=== PATIENT | male | born 1950 | race Caucasian/White ===

== ENCOUNTER 2017-11-20 15:25 | Inpatient (IN) | payer OTHER ==
[~2017-11-20] VITALS: Ht 177.8 cm; Wt 110.6 kg
[~2017-11-20 15:25] MED LIST: ALBUTEROL2.5 MG/3 M IH; ALENDRONATE SOD70 MG PO; AMOX TR-K CLV1 EAC4 PO; ASPIRIN EC325 MG PO; CALCIUM CARBON650 MG PO; CETIRIZINE HCL10 M2 PO; CYANOCOBALAM1000 MCG PO; FERROUS SULFAT325 MG PO; FLONASE16 G1 BOTH NARES; FOLIC ACID1 MG PO; IRON325 MG PO; LEVO-T75 MCG PO; LO-DOSE ASPIRIN81 M1 PO; METOPROLOL TART50 MG PO; MYCOSTATIN 100,60 ML PO; NEURONTIN100 MG PO; OMEPRAZOLE20 M2 PO; OXYCODONE HCL5 MG PO; OXYCONTIN10 MG PO; PROAIR RESPICL90 MCG IH; REFRESH TEARS15 ML BOTH EYES; RESTASIS 01 DROP/0.4 BOTH EYES; SALINE NOSE SPR45 M1 BOTH NARES; SARNA ANTI-ITC222 ML TP; SENNA PLUS TAB1 EACH PO; SYMBICORT60 INHALAT IH; TYLENOL EXTRA500 MG PO; ULTRAM50 MG PO; VALSARTAN80 MG PO; VIAGRA100 MG PO; VITAMIN C1000 MG PO; VITAMIN D31000 UNIT PO; XARELTO10 MG PO
[2017-11-20 15:30] VITALS: BP 148/71
[2017-11-20] MEDS ORDERED: ADULT ASPIRIN81 MG PO (15:45)
[2017-11-20] MEDS ORDERED: KEFLEX500 MG PO (15:47)
[2017-11-20] MEDS ORDERED: HYDROCHLOROTHIA25 MG PO (15:48)
[2017-11-20] MEDS ORDERED: INCRUSE ELLI62.5 MCG IH (15:49)
[2017-11-20] MEDS ORDERED: ARTIFICIAL TEAR1510 OP (15:50)
[2017-11-20] MEDS ORDERED: RESTASIS MULTI5.5 ML OP (15:51)
[2017-11-20] MEDS ORDERED: FLUNISOLIDE25 ML BOTH NARES (15:52)
[2017-11-20] MEDS ORDERED: SYMBICORT60 INHALAT IH (15:53)
[2017-11-20] MEDS ORDERED: PROBIOTIC1 EAC1 PO (15:54)
[2017-11-20] MEDS ORDERED: SILDENAFIL CIT100 MG PO (15:55)
[2017-11-20 23:47] VITALS: BP 117/56
[2017-11-21 05:38] VITALS: BP 131/62
[2017-11-21 05:47] LABS: HEMATOCRIT 30.6 % (38.0-50.0); HEMOGLOBIN 10.6 G/DL (12.5-16.6); MCH 33.1 PG (29.0-34.0); MCHC 34.6 G/DL (30.0-36.0); MCV 95.6 FL (86-99); PLATELET COUNT 339 K/uL (156-360); RBC DIS.WIDTH-CV 12.7 % (11.8-14.6); RBC DIS.WIDTH-SD 44.4 % (39-53); WHITE BLOOD COUNT 8.1 K/uL (4.1-10.2)
[2017-11-21 06:05] LABS: ALBUMIN 2.9 G/DL (3.2-4.8); ALKALINE PHOSPHATASE 82 IU/L (3-129); ALT (GPT) 12 IU/L (3-49); AST (GOT) 16 IU/L (2-34); CHLORIDE 93 MEQ/L (99-109); CREATININE 0.9 MG/DL (0.6-1.3); GFR ESTIMATE (CALCULATED) > 59 mL/min/ (58.99-99999); GLUCOSE 103 mg/dL (70-99); POTASSIUM 4.3 MEQ/L (3.7-5.4); SODIUM 127 MEQ/L (136-147); TOTAL BILIRUBIN 0.4 MG/DL (0.0-1.0); TOTAL PROTEIN 6.5 G/DL (6.4-8.3); UREA NITROGEN (BUN) 20 mg/dL (9-23)
[2017-11-21 15:50] VITALS: BP 120/59
[2017-11-22 06:41] VITALS: BP 126/63
[2017-11-22 07:59] VITALS: BP 128/64
[2017-11-22 16:12] VITALS: BP 131/62
[2017-11-23 05:22] VITALS: BP 120/58
[2017-11-23 05:28] LABS: BASOPHIL (%) 0.9 % (0-1); BASOPHIL COUNT 0.1 K/uL (0-0.1); EOSINOPHIL (%) 7.3 % (0-5); EOSINOPHIL COUNT 0.7 K/uL (0-0.3); HEMATOCRIT 31.7 % (38.0-50.0); HEMOGLOBIN 10.7 G/DL (12.5-16.6); IMMATURE GRANULOCYTE (%) 0.7 % (0.0-0.7); LYMPHOCYTE (%) 33.6 % (15-42); LYMPHOCYTE COUNT 3.1 K/uL (1.0-2.8); MCH 32.6 PG (29.0-34.0); MCHC 33.8 G/DL (30.0-36.0); MCV 96.6 FL (86-99); MONOCYTE (%) 19.1 % (3-12); MONOCYTE COUNT 1.7 K/uL (0-0.8); NEUTROPHIL (%) 38.4 % (45-76); NEUTROPHIL COUNT 3.5 K/uL (1.8-6.4); PLATELET COUNT 428 K/uL (156-360); RBC DIS.WIDTH-CV 12.8 % (11.8-14.6); RBC DIS.WIDTH-SD 45.7 % (39-53); RED BLOOD COUNT 3.28 M/uL (4.00-5.50); WHITE BLOOD COUNT 9.1 K/uL (4.1-10.2)
[2017-11-23 05:58] LABS: ALBUMIN 3.4 G/DL (3.2-4.8); ALKALINE PHOSPHATASE 74 IU/L (3-129); ALT (GPT) 15 IU/L (3-49); AST (GOT) 14 IU/L (2-34); CHLORIDE 94 MEQ/L (99-109); CREATININE 0.8 MG/DL (0.6-1.3); GFR ESTIMATE (CALCULATED) > 59 mL/min/ (58.99-99999); GLUCOSE 114 mg/dL (70-99); POTASSIUM 4.4 MEQ/L (3.7-5.4); SODIUM 127 MEQ/L (136-147); TOTAL BILIRUBIN 0.4 MG/DL (0.0-1.0); UREA NITROGEN (BUN) 16 mg/dL (9-23)
[2017-11-23 07:26] VITALS: BP 122/59
[2017-11-23 15:21] VITALS: BP 131/66
[2017-11-24 03:35] VITALS: BP 141/80
[2017-11-24 15:32] VITALS: BP 117/59
[2017-11-25 04:48] VITALS: BP 132/64
[2017-11-25 06:28] LABS: CHLORIDE 95 MEQ/L (99-109); CREATININE 0.8 MG/DL (0.6-1.3); GFR ESTIMATE (CALCULATED) > 59 mL/min/ (58.99-99999); GLUCOSE 111 mg/dL (70-99); POTASSIUM 4.5 MEQ/L (3.7-5.4); SODIUM 130 MEQ/L (136-147); UREA NITROGEN (BUN) 14 mg/dL (9-23)
[2017-11-25 15:10] VITALS: BP 119/58
[2017-11-26 05:40] VITALS: BP 134/68
[2017-11-26 06:12] LABS: HEMATOCRIT 32.4 % (38.0-50.0); HEMOGLOBIN 10.8 G/DL (12.5-16.6); MCH 32.7 PG (29.0-34.0); MCHC 33.3 G/DL (30.0-36.0); MCV 98.2 FL (86-99); PLATELET COUNT 535 K/uL (156-360); RBC DIS.WIDTH-CV 12.9 % (11.8-14.6); RBC DIS.WIDTH-SD 46.5 % (39-53); WHITE BLOOD COUNT 8.8 K/uL (4.1-10.2)
[2017-11-26 06:37] LABS: CHLORIDE 95 MEQ/L (99-109); CREATININE 0.8 MG/DL (0.6-1.3); GFR ESTIMATE (CALCULATED) > 59 mL/min/ (58.99-99999); GLUCOSE 103 mg/dL (70-99); POTASSIUM 4.6 MEQ/L (3.7-5.4); SODIUM 131 MEQ/L (136-147); UREA NITROGEN (BUN) 13 mg/dL (9-23)
[2017-11-26 16:14] VITALS: BP 136/65
[2017-11-27 06:59] VITALS: BP 164/74
[2017-11-27 11:20] VITALS: BP 148/68
[2017-11-27 16:13] VITALS: BP 131/61
[2017-11-28 05:49] VITALS: BP 137/67
[2017-11-28] MEDS ORDERED: NEURONTIN100 MG PO (08:24)
[2017-11-28] MEDS ORDERED: OXYCODONE HCL5 MG PO (08:24)
== END 2017-11-28 10:30 | DRG 949 ==
LOC: 3WEST 15:25
PROVIDERS: Physical Medicine & Rehabilitation Pain Medicine; Psychiatry & Neurology Neurology
PROC: F07M0ZZ Range of Motion and Joint Mobility Treatment of Musculoskeletal System - Whole Body (ICD-10-PCS; principal; 2017-11-20)
DX: Z48.89 Encounter for other specified surgical aftercare (principal); J44.0 Chronic obstructive pulmonary disease with (acute) lower respiratory infection; J18.9 Pneumonia, unspecified organism; K21.9 Gastro-esophageal reflux disease without esophagitis; G47.33 Obstructive sleep apnea (adult) (pediatric); E87.1 Hypo-osmolality and hyponatremia; I10 Essential (primary) hypertension; Z96.651 Presence of right artificial knee joint; Z98.1 Arthrodesis status; G93.40 Encephalopathy, unspecified; R09.02 Hypoxemia; Z87.891 Personal history of nicotine dependence; E87.8 Other disorders of electrolyte and fluid balance, not elsewhere classified; E87.5 Hyperkalemia; I35.0 Nonrheumatic aortic (valve) stenosis; K90.41 Non-celiac gluten sensitivity; J98.11 Atelectasis; E03.9 Hypothyroidism, unspecified; E66.9 Obesity, unspecified; D62 Acute posthemorrhagic anemia; R26.2 Difficulty in walking, not elsewhere classified
CPT/HCPCS: 71046; 80048; 80048 91; 80053; 85025; 85027; 93005; 93970; 94640; 94640 76; 94660; 94760; 94799; 97110 GO; 97530 GP; 99202